=== PATIENT | male | born 1950 | race Caucasian/White ===

== ENCOUNTER 2020-03-22 10:42 | Outpatient (CLI) | payer MEDICARE, SELFPAY ==
--- NOTE | ~2020-03-22 | XR_ITS ---
EXAMINATION: XR cervical spine min 6V DATE: 03/22/2020 11:13 INDICATION: Cervical radiculopathy TECHNIQUE: AP, lateral in neutral, flexion, and extension, and lateral swimmer's views of the thoraci c spine were obtained. COMPARISON: None. FINDINGS: Bone alignment is normal. There is no laxity with flexion or extension. There is mild loss of intervertebral disc space height at C5-6. The vertebral body heights are normal. There is no fract ure. The odontoid is intact. The prevertebral soft tissues are normal. Small degenerative osteophytes project from the anterior endplates of multiple vertebral bodies. There is mild to moderate facet an d uncovertebral joint osteoarthritis of the mid and lower cervical spine. IMPRESSION: 1. Mild cervical spondylosis without acute findings. Reviewed, dictated and finalized at location A.
== END 2020-03-22 10:43 | disposition home or self-care (01) ==
PROVIDERS: PCP Family Medicine; Visit Provider Chiropractor Rehabilitation
DX: M54.5 Low back pain (principal); M47.812 Spondylosis without myelopathy or radiculopathy, cervical region
CPT/HCPCS: 72052

== ENCOUNTER 2020-04-06 07:46 | Outpatient (CLI) | payer MEDICARE, SELFPAY ==
--- NOTE | ~2020-04-06 | CT_ITS ---
EXAMINATION: CTA chest DATE: 04/06/2020 08:44 CDT INDICATION: Ascending thoracic aortic aneurysm. TECHNIQUE: Computed tomographic angiography (CTA) of the chest was performed with 100 mL Omnipaque-35 0 intravenous contrast. The dose-length product was 360.04 mGy-cm. Maximum intensity projection 3D-re constructions of the aorta and other arteries were constructed by the technologist on a separate work station. Automated exposure control and iterative reconstruction technique were employed. COMPARISON: CT dated 03/17/2019 and 03/14/2017 FINDINGS: Ascending thoracic aorta contains mild atherosclerotic changes measuring 3.9 cm maximum dim ension which is within normal limits. No significant pleural or pericardial effusion. No evidence for pulmonary embolism. Mild cardiomegaly. There are gallstones. Stable 13 mm left adrenal mass, most li shi benign adenoma. There are small calcified granulomas in both lungs. No focal airspace consolidat ion. 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 Stable fissural nodules on the right, largest measuring 5 mm. Stable left lower lobe nodules. IMPRESSION: 1. Mild atherosclerosis of the ascending thoracic aorta without aneurysm. 2: Cholelithiasis. 3: Stable bilateral pulmonary nodules, likely benign. 4: Cardiomegaly. Reviewed, dictated and finalized at location A.
[2020-04-06 08:15] LABS: Estimated Glomerular Filt Rate > 60
== END 2020-04-06 07:47 | disposition home or self-care (01) ==
PROVIDERS: PCP Family Medicine; Visit Provider Internal Medicine Cardiovascular Disease
DX: I71.2 Thoracic aortic aneurysm, without rupture (principal); I35.1 Nonrheumatic aortic (valve) insufficiency; I70.0 Atherosclerosis of aorta; K80.20 Calculus of gallbladder without cholecystitis without obstruction; R91.1 Solitary pulmonary nodule; I51.7 Cardiomegaly
CPT/HCPCS: 36415; 71275; Q9967

== ENCOUNTER 2022-04-05 13:36 | Outpatient (CLI) | payer MEDICARE, SELFPAY ==
--- NOTE | ~2022-04-05 | CT_ITS ---
EXAMINATION: CTA chest DATE: 04/05/2022 14:17 INDICATION: Ascending aortic aneurysm. TECHNIQUE: Computed tomographic angiography (CTA) of the chest was performed with 100 mL Omnipaque 30 0 intravenous contrast. Automated exposure control and iterative reconstruction technique were employ ed. The dose-length product was 556.66 mGy-cm. Maximum intensity projection 3D-reconstructions of the aorta and other arteries were constructed by the technologist on a separate workstation. COMPARISON: Chest CT 04/06/2020 FINDINGS: The lungs demonstrate mild atelectasis. There is a 4 mm nodule in right middle lobe without change, likely benign. Calcified bilateral lung nodules are consistent with old granulomatous diseas e. No pleural effusion. Cardiomegaly is noted. No pericardial effusion. The aorta measures 4.2 cm of the sinuses of Valsalva, 3.8 cm at the sinotubular junction, 4.0 cm in the mid ascending aorta, 2.6 c m at the aortic isthmus, and 2.9 cm in the mid descending aorta. There is mild aortic atherosclerosis . There are gallstones in the gallbladder, which is normal in size. There is a small sliding hiatal h ernia. There is mild thoracic spondylosis. IMPRESSION: 1. Aortic ectasia measuring 4.2 cm at the sinuses of Valsalva. Reviewed, dictated and finalized at location A.
[2022-04-05 14:07] LABS: Estimated Glomerular Filt Rate > 60
== END 2022-04-05 13:37 | disposition home or self-care (01) ==
PROVIDERS: PCP Family Medicine; Visit Provider Internal Medicine Cardiovascular Disease
DX: I71.2 Thoracic aortic aneurysm, without rupture (principal); I35.1 Nonrheumatic aortic (valve) insufficiency
CPT/HCPCS: 71275; Q9967

== ENCOUNTER → 2023-07-23 14:54 | Outpatient (CLI) | payer MEDICARE, SELFPAY ==
--- NOTE | ~2023-07-23 | XR_ITS ---
EXAMINATION: XR chest 2V 07/23/2023 15:20 INDICATION: Malignant neoplasm of the right kidney PROCEDURE: 2 view chest COMPARISON: No prior studies for comparison. FINDINGS: The lungs are clear. The cardiomediastinal silhouette is within normal limits. There are no pleural effusions. There is no pneumothorax suspected. IMPRESSION: 1: NO ACUTE CARDIOPULMONARY DISEASE. Reviewed, dictated and finalized at location B.
== END ==
PROVIDERS: PCP Urology; Visit Provider Urology
DX: C64.1 Malignant neoplasm of right kidney, except renal pelvis (principal)
CPT/HCPCS: 71046

== ENCOUNTER 2024-03-21 09:14 | Outpatient (CLI) | payer MEDICARE, SELFPAY ==
--- NOTE | ~2024-03-21 | US_ITS ---
EXAMINATION: US venous doppler [facility] DATE: 03/21/2024 09:50 INDICATION: Left lower limb edema. TECHNIQUE: Grayscale ultrasound images without and with compression and Doppler ultrasound images of the bilateral lower extremity veins were obtained. COMPARISON: None. FINDINGS: The visualized portions of right common femoral vein, profunda (deep) femoral vein, femoral vein, pop liteal vein, peroneal veins, posterior tibial veins, and greater saphenous vein outflow are patent. The visualized portions of left common femoral vein, profunda femoral vein, femoral vein, popliteal v ein, peroneal veins, posterior tibial veins, and greater saphenous vein outflow are patent. IMPRESSION: 1. No deep venous thrombosis. Reviewed, dictated and finalized at location A.
== END 2024-03-21 09:15 | disposition home or self-care (01) ==
PROVIDERS: PCP Family Medicine
DX: R60.0 Localized edema (principal)
CPT/HCPCS: 93970

== ENCOUNTER 2024-04-20 11:31 | Emergency (ER) | payer MEDICARE, SELFPAY ==
--- NOTE | 2024-04-20 11:36 | ED.ABDPAIN ---
HPI - Abdominal Pain General Chief Complaint: Nausea/Vomiting/Diarrhea Stated Complaint: bloating Time Seen by Provider: 04/20/24 11:43 Source: patient, RN notes reviewed and old records reviewed Mode of arrival: ambulatory Limitations: no limitations History of Present Illness HPI narrative: 73-year-old male presents to [facility] with complaints bloating since he had some nausea and vomiting on night, 3 days ago. Has been drinking fluids. Last bowel movement was yesterday which he reports is normal. reports that he has been passing gas. Patient states that he was seen 2 years ago at [place], found a lesion on his kidney and prescribed medication which made him better. Patient reports he was hoping just to get the medication he was prescribed Attempted to explain to patient that with bloating and abdominal discomfort and he is 73 years old that there is other concerns and he needs more workup than we can offer in the urgent care. Onset (ago): day(s) (3) Treatments prior to arrival: other (Maalox) Related Data Home Medications Medication Instructions Recorded Confirmed amlodipine 10 mg tablet 10 mg PO DAILY 12/02/19 04/20/24 lisinopril 40 mg tablet 40 mg PO DAILY 12/02/19 04/20/24 metoprolol succinate 50 mg 50 mg PO DAILY 12/02/19 04/20/24 tablet,extended release 24 hr potassium chloride 10 mEq 10 meq PO DAILY 12/02/19 04/20/24 tablet,extended release spironolactone 25 mg tablet 25 mg PO DAILY 12/02/19 04/20/24 Allergies Allergy/AdvReac Type Severity Reaction Status Date / Time No Known Allergies Allergy Mild Verified 04/20/24 11:47 Review of Systems Review of Systems: All systems reviewed & are unremarkable except as noted in HPI and below Constitutional: Constitutional: Reports no additional constitutional complaints Eyes: Eyes: Reports no additional eye complaints ENT: Reports system reviewed and no additional complaints, except as documented Cardiovascular: Cardiovascular: Reports no additional cardiovascular complaints, Denies chest pain and Denies dyspnea Respiratory: Respiratory: Reports no additional respiratory complaints, Denies chest congestion, Denies cough and Denies dyspnea Gastrointestinal: Gastrointestinal: Reports as per HPI, Reports abdominal pain, Reports bloating, Reports nausea and Reports vomiting Musculoskeletal: Musculoskeletal: Reports no additional musculoskeletal complaints Integumentary/Breasts: Skin/Breast: Reports system reviewed and no additional complaints, except as docu Neurologic: Reports system reviewed and no additional complaints, except as documented Psychiatric: Psychiatric: Reports no additional psychiatric complaints Allergic/Immunologic: Allergic/Immunologic: Reports no additional allergic/immunologic complaints PMFSH Past Medical History Medical History Essential (primary) hypertension Family History Family History Mother Hypertension Family history of atrial fibrillation Sibling Patient's brother is in good health Family history of malignant neoplasm of brain Father Family history of Alzheimer's disease Family history of coronary artery disease Family history of malignant neoplasm of testis, Onset Age: 88 Social History Social History Smoking status: Former smoker Smoking end date: 11/12/75 Alcohol intake: current Comments At the time of my signature, I reviewed and agree with the nursing past medical, surgical, social, and family history. There is no relevant family history pertinent to the patient complaint. Exam Const: General: cooperative, healthy appearing, comfortable, no acute distress, well developed, alert and well nourished Nutritional Appearance: well nourished Orientation/consciousness: patient oriented x3 Limitations: no limitations HE
[2024-04-20 11:43] VITALS: BP 126/67; PULSE 57; RESP 18; TEMP 36.4; O2SAT 99
== END 2024-04-20 12:00 | disposition home or self-care (01) ==
PROVIDERS: Emergency Provider Nurse Practitioner; PCP Family Medicine
DX: R14.0 Abdominal distension (gaseous) (principal); Z87.891 Personal history of nicotine dependence; I10 Essential (primary) hypertension
CPT/HCPCS: 99211; G0463

== ENCOUNTER 2024-05-02 12:36 | Outpatient (CLI) | payer MEDICARE, SELFPAY ==
--- NOTE | ~2024-05-02 | XR_ITS ---
EXAMINATION: XR chest 2V 05/02/2024 12:51 INDICATION: Malignant neoplasm of the right kidney PROCEDURE: 2 view chest COMPARISON: 07/23/2023 FINDINGS: The lungs are clear. The cardiomediastinal silhouette is within normal limits. There are no pleural effusions. There is no pneumothorax suspected. IMPRESSION: 1: NO ACUTE CARDIOPULMONARY DISEASE. Reviewed, dictated and finalized at location B.
== END 2024-05-02 12:37 ==
PROVIDERS: PCP Urology; Visit Provider Urology
DX: C64.1 Malignant neoplasm of right kidney, except renal pelvis (principal)
CPT/HCPCS: 71046

== ENCOUNTER 2024-07-30 14:34 | Outpatient (CLI) | payer MEDICARE, SELFPAY ==
--- NOTE | ~2024-07-30 | CT_ITS ---
EXAMINATION:CT diagnostic chest wo con DATE: 07/30/2024 15:13 INDICATION: Aneurysm of aortic root. TECHNIQUE: Computed tomography (CT) of the chest was performed without intravenous contrast. Automate d exposure control and iterative reconstruction technique were employed. The dose-length product (DLP ) was 331.17 mGy-cm. COMPARISON: Chest CT 04/05/2022 FINDINGS: The lungs demonstrate mild atelectasis. There are a few nodules in the lungs measuring up t o 5 mm in left lower lobe without change, likely benign. Calcified pulmonary nodules and calcified hi lar lymph nodes are consistent with old granulomatous disease. No pleural effusion. Cardiomegaly is n oted. No pericardial effusion. There is a small sliding hiatal hernia. There are gallstones in the ga llbladder, which is contracted. Calcifications in the spleen are consistent with old granulomatous di sease. The aorta measures 4.2 cm at the sinuses of Valsalva, 3.7 cm at the sinotubular junction, 3.9 cm in the mid ascending aorta, 3.0 cm at the isthmus, and 3.0 cm in the mid descending aorta. There i s moderate thoracic spondylosis. IMPRESSION: 1. Stable aortic ectasia measuring 4.2 cm at the sinuses of Valsalva. Reviewed, dictated and finalized at location A.
== END 2024-07-30 14:35 | disposition home or self-care (01) ==
LOC: ANHIMG 14:36
PROVIDERS: PCP Family Medicine; Visit Provider Internal Medicine Cardiovascular Disease
DX: I71.21 Aneurysm of the ascending aorta, without rupture (principal)
CPT/HCPCS: 71250

== ENCOUNTER 2025-04-17 08:06 | Outpatient (CLI) | payer MEDICARE, SELFPAY ==
--- NOTE | ~2025-04-17 | CT_ITS ---
EXAMINATION: CT abdomen wo/w con DATE: 04/17/2025 08:52 INDICATION: Malignant neoplasm of the right kidney TECHNIQUE: Computed tomography (CT) of the abdomen and pelvis was performed without and with 100 cc O mnipaque 350 intravenous contrast. The dose-length product was 1298.30 mGy-cm. Automated exposure con trol and iterative reconstruction technique were employed. COMPARISON: None. FINDINGS: Dependent atelectasis. Heart size normal. No significant pleural or pericardial effusion. T here are gallstones. There are surgical changes of partial right renal ablation. No renal stones or h ydronephrosis. There is a 3.4 cm left renal cyst. There is a fat-containing umbilical hernia. Small h iatal hernia. No acute osseous abnormality. Nonobstructive bowel gas pattern. No free air or free flu id. IMPRESSION: 1. Status post partial right renal ablation. No evidence for tumor recurrence. 2: Cholelithiasis. Reviewed, dictated and finalized at location A.
--- NOTE | ~2025-04-17 | XR_ITS ---
EXAMINATION: XR chest 2V 04/17/2025 08:23 INDICATION: Malignant neoplasm of the right kidney PROCEDURE: 2 view chest COMPARISON: 05/02/2024 FINDINGS: The lungs are clear. The cardiomediastinal silhouette is within normal limits. There are no pleural effusions. There is no pneumothorax suspected. IMPRESSION: 1: NO ACUTE CARDIOPULMONARY DISEASE. Reviewed, dictated and finalized at location A.
[2025-04-17 08:42] LABS: Estimated Glomerular Filt Rate > 60
== END 2025-04-17 08:07 | disposition home or self-care (01) ==
LOC: MICIMG 08:08
PROVIDERS: PCP Family Medicine; Visit Provider Urology
DX: C64.1 Malignant neoplasm of right kidney, except renal pelvis (principal); K80.20 Calculus of gallbladder without cholecystitis without obstruction
CPT/HCPCS: 71046; 74170; Q9967

== ENCOUNTER 2025-09-08 08:02 | Outpatient (CLI) | payer MEDICARE, SELFPAY ==
--- NOTE | ~2025-09-08 | CT_ITS ---
EXAMINATION: CTA chest DATE: 09/08/2025 08:38 INDICATION: Aneurysm of ascending aorta. TECHNIQUE: Computed tomographic angiography (CTA) of the chest was performed with 100 mL Omnipaque-350 intravenous contrast. Automated exposure control and iterative reconstruction technique were employed. The dose-length product was 704.17 mGy-cm. Maximum intensity projection 3D-reconstructions of the aorta and other arteries were constructed by the technologist on a separate workstation. COMPARISON: Chest CT 07/30/2024 FINDINGS: The lungs demonstrate mild atelectasis. Calcified pulmonary nodules and calcified hilar lymph nodes are consistent with old granulomatous disease. There is a stable 6 mm nodule in left lower lobe, likely benign. No pleural effusion. The heart size is normal. No pericardial effusion. There are gallstones in the gallbladder which is normal in size. There is a 1.6 cm mass in left adrenal gland without change, likely an adenoma. There are measures 4.2 cm at the sinuses of Valsalva, 3.7 cm at the sinotubular junction, 4.2 cm in the mid ascending aorta, 3.4 cm at the aortic isthmus, and 3.3 cm in the mid descending aorta. There is no pulmonary embolus. There is moderate cervical spondylosis and mild thoracic spondylosis. There is a chronic compression fracture of T3. IMPRESSION: 1. Stable ectasia of ascending aorta measuring 4.2 cm. Reviewed, dictated and finalized at location E.
[2025-09-08 08:34] LABS: Estimated Glomerular Filt Rate > 60
== END 2025-09-08 08:03 | disposition home or self-care (01) ==
PROVIDERS: PCP Family Medicine; Visit Provider Internal Medicine Cardiovascular Disease
DX: I71.21 Aneurysm of the ascending aorta, without rupture (principal)
CPT/HCPCS: 71275; Q9967